=== PATIENT | male | born 1990 | race Two or more races ===

== ENCOUNTER 2019-12-29 09:56 | Inpatient (IN) | payer OTHER ==
[~2019-12-29] VITALS: Ht 180.3 cm; Wt 76.8 kg
[~2019-12-29 09:56] MED LIST: GABA-1201 PO; LAMO100 PO
[2019-12-29] MEDS ORDERED: LEVE1000 PO (10:28)
[2019-12-29] MEDS ORDERED: GABAPENTIN 100 MG CAPSULE PO ONE (10:45)
[2019-12-29] MEDS ORDERED: LevETIRAcetam 500 MG TABLET PO ONE (10:45)
[2019-12-29] MEDS ORDERED: LamoTRIgine 100 MG TABLET PO ONE (10:45)
[2019-12-29 11:00] LABS: BASOPHILS % (AUTO) 0.7 % (0.0-2.0); EOSINOPHILS % (AUTO) 0.4 % (1.0-6.0); HEMATOCRIT 45.8 % (41-53); HEMOGLOBIN 15.5 g/dL (13.5-17.5); LYMPHOCYTES # (AUTO) 1.2 K/uL (1.0-4.8); LYMPHOCYTES % (AUTO) 22.9 % (22.0-44.0); MEAN CORPUSCULAR HEMOGLOBIN 30.8 pg (26.0-34.0); MEAN CORPUSCULAR HGB CONC 33.9 G/dL (31.0-37.0); MEAN CORPUSCULAR VOLUME 91 fL (80-100); MONOCYTES # (AUTO) 0.3 K/uL (0.1-1.0); MONOCYTES % (AUTO) 6.2 % (2.0-9.0); NEUTROPHILS # (AUTO) 3.8 K/uL (1.8-7.7); NEUTROPHILS % (AUTO) 69.8 % (40.0-70.0); PLATELET COUNT (AUTO) 219 K/uL (150-450); RED BLOOD CELL COUNT(AUTO) 5.04 MIL/uL (4.50-5.90); RED CELL DISTRIBUTION WIDTH 13.2 % (11.5-14.5)
[2019-12-29] MEDS ORDERED: MAGNESIUM HYDROXIDE SUSPENSION 30 ML UDCUP PO PRN (11:15)
[2019-12-29] MEDS ORDERED: LORazepam 2 MG/ML VIAL IVP PRN (11:15)
[2019-12-29] MEDS ORDERED: ACETAMINOPHEN 325 MG TABLET PO PRN (11:15)
[2019-12-29 11:47] VITALS: BP 150/67
[2019-12-29 11:57] LABS: ANION GAP 15 mmol/L (8-16); CALCIUM, TOTAL 9.3 mg/dL (8.8-10.5); CARBON DIOXIDE 26 mmol/L (22-29); CHLORIDE 104 mmol/L (98-107); CREATININE 0.81 mg/dL (0.60-1.30); GLOMERULAR FILTR. RATE CALC > 60 mL/min (>60); GLUCOSE,RANDOM 84 mg/dL (70-110); POTASSIUM 3.7 mmol/L (3.5-5.1); SODIUM SERUM 145 mmol/L (136-145); UREA NITROGEN, BLOOD 12 mg/dL (7-18)
[2019-12-29 12:02] LABS: ALANINE AMINOTRANSFERASE 35 U/L (12-78); ALBUMIN 4.6 g/dL (3.4-5.0); ALKALINE PHOSPHATASE 71 U/L (46-116); ASPARTATE AMINOTRANSFERASE 23 U/L (15-37); BILIRUBIN,TOTAL 0.6 mg/dL (0.1-1.0); TOTAL PROTEIN, SERUM 7.9 g/dL (6.4-8.2)
[2019-12-29 14:54] LABS: AMPHET/METH SCREEN,URINE NEGATIVE (NEGATIVE); BARBITURATE SCREEN, URINE NEGATIVE (NEGATIVE); BENZODIAZEPINES SCREEN,URINE NEGATIVE (NEGATIVE); CANNABINOID SCREEN,URINE NEGATIVE (NEGATIVE); COCAINE SCREEN,URINE NEGATIVE (NEGATIVE); METHADONE SCREEN, URINE NEGATIVE (NEGATIVE); OPIATE SCREEN,URINE NEGATIVE (NEGATIVE)
[2019-12-29 14:58] LABS: PHENCYCLIDINE SCREEN,URINE NEGATIVE (NEGATIVE)
[2019-12-29 16:22] VITALS: BP 121/81
[2019-12-29 19:50] VITALS: BP 109/66
[2019-12-29] MEDS: LamoTRIgine 100 MG TABLET PO SCH (20:00)
[2019-12-29] MEDS: LevETIRAcetam 500 MG TABLET PO SCH (20:00)
[2019-12-29] MEDS: GABAPENTIN 300 MG CAPSULE PO SCH (21:37)
[2019-12-30 04:19] VITALS: BP 123/73
[2019-12-30 08:22] VITALS: BP 110/56
[2019-12-30] MEDS: LamoTRIgine 100 MG TABLET PO SCH ×2 (09:05→20:10)
[2019-12-30] MEDS: LevETIRAcetam 500 MG TABLET PO SCH ×2 (09:05→20:10)
[2019-12-30] MEDS: FAMOTIDINE 20 MG TABLET PO SCH (09:05)
[2019-12-30] MEDS: GABAPENTIN 300 MG CAPSULE PO SCH ×2 (09:05→20:10)
[2019-12-30 15:15] VITALS: BP 105/54
[2019-12-30 20:05] VITALS: BP 110/59
[2019-12-31 04:39] VITALS: BP 116/78
[2019-12-31 07:59] VITALS: BP 104/67
[2019-12-31] MEDS: GABAPENTIN 300 MG CAPSULE PO SCH ×2 (09:00→21:22)
[2019-12-31] MEDS: FAMOTIDINE 20 MG TABLET PO SCH (09:00)
[2019-12-31] MEDS: LevETIRAcetam 500 MG TABLET PO SCH ×2 (09:00→21:22)
[2019-12-31] MEDS: LamoTRIgine 100 MG TABLET PO SCH ×2 (09:01→21:22)
[2019-12-31 20:58] VITALS: BP 113/71
[2020-01-01 05:12] VITALS: BP 102/59
[2020-01-01] MEDS: LevETIRAcetam 500 MG TABLET PO SCH ×2 (08:38→20:54)
[2020-01-01] MEDS: GABAPENTIN 300 MG CAPSULE PO SCH ×2 (08:38→20:55)
[2020-01-01] MEDS: FAMOTIDINE 20 MG TABLET PO SCH (08:38)
[2020-01-01] MEDS: LamoTRIgine 100 MG TABLET PO SCH ×2 (08:39→20:54)
[2020-01-01 09:05] VITALS: BP 94/70
[2020-01-01 15:45] VITALS: BP 130/66
[2020-01-01 19:27] VITALS: BP 127/64
[2020-01-01 19:59] VITALS: BP 105/52
[2020-01-02 04:35] VITALS: BP 131/73
[2020-01-02] MEDS: FAMOTIDINE 20 MG TABLET PO SCH (08:10)
[2020-01-02] MEDS: GABAPENTIN 300 MG CAPSULE PO SCH ×2 (08:10→20:07)
[2020-01-02] MEDS: LamoTRIgine 100 MG TABLET PO SCH ×2 (08:10→20:07)
[2020-01-02] MEDS: LevETIRAcetam 500 MG TABLET PO SCH ×2 (08:10→20:06)
[2020-01-02 08:48] VITALS: BP 102/64
[2020-01-02 15:41] VITALS: BP 103/57
[2020-01-02 20:39] VITALS: BP 118/65
[2020-01-03 04:00] VITALS: BP 122/65
[2020-01-03] MEDS: GABAPENTIN 300 MG CAPSULE PO SCH ×2 (07:59→20:27)
[2020-01-03] MEDS: FAMOTIDINE 20 MG TABLET PO SCH (07:59)
[2020-01-03] MEDS: LevETIRAcetam 500 MG TABLET PO SCH ×2 (08:00→20:27)
[2020-01-03] MEDS: LamoTRIgine 100 MG TABLET PO SCH ×2 (08:00→20:27)
[2020-01-03 08:30] VITALS: BP 105/68
[2020-01-03 15:57] VITALS: BP 113/58
[2020-01-03 19:50] VITALS: BP 116/80
[2020-01-04 05:11] VITALS: BP 122/67
[2020-01-04] MEDS: FAMOTIDINE 20 MG TABLET PO SCH (08:03)
[2020-01-04] MEDS: LamoTRIgine 100 MG TABLET PO SCH ×2 (08:03→20:44)
[2020-01-04] MEDS: GABAPENTIN 300 MG CAPSULE PO SCH ×2 (08:03→20:44)
[2020-01-04] MEDS: LevETIRAcetam 500 MG TABLET PO SCH ×2 (08:03→20:44)
[2020-01-04 08:25] VITALS: BP 108/56
[2020-01-04 15:50] VITALS: BP 126/68
== END 2020-01-04 21:11 | DRG 101 ==
LOC: EMS 09:57 → 6S 11:02
PROVIDERS: ADMIT Internal Medicine; ATTEND Internal Medicine
DX: G40.909 Epilepsy, unspecified, not intractable, without status epilepticus (principal); F29 Unspecified psychosis not due to a substance or known physiological condition; F22 Delusional disorders; Z88.8 Allergy status to other drugs, medicaments and biological substances
CPT/HCPCS: G0480